=== PATIENT | female | born 1960 | race Caucasian/White ===

== ENCOUNTER 2023-06-11 16:51 | Emergency (ER) | payer BC ==
[2023-06-11] MEDS ORDERED: Sodium Chloride 0.9% 2.5 ML Syringe FLUSH PRN (17:31)
[2023-06-11] MEDS ORDERED: Sodium Chloride 0.9% 10 ML Syringe FLUSH PRN (17:31)
[2023-06-11] MEDS ORDERED: Promethazine 25 MG/ML SDV IM STA (17:32)
[2023-06-11] MEDS ORDERED: Sodium Chloride 0.9% 1,000 ML IV STA (18:40)
[2023-06-11] MEDS ORDERED: droPERidol 5 MG/2 ML SDV IVPUSH STA (18:40)
[2023-06-11 18:51] LABS: BASOPHILS PERCENT AUTO 0.4 % (0.0-1.5); HEMATOCRIT 51.1 % (36.0-46.0); HEMOGLOBIN 17.7 g/dL (12.0-16.0); LYMPHOCYTES ABSOLUTE AUTO 0.7 K/uL (0.6-2.4); LYMPHOCYTES PERCENT AUTO 6.7 % (16.0-40.0); MEAN CORPUSCULAR HEMOGLOBIN 31.1 pg (27.0-32.0); MEAN CORPUSCULAR HGB CONC 34.6 g/dL (31.0-37.0); MEAN CORPUSCULAR VOLUME 89.6 fL (80.0-98.0); MONOCYTES ABSOLUTE AUTO 0.4 K/uL (0.0-0.8); MONOCYTES PERCENT AUTO 4.4 % (0.0-15.0); NEUTROPHILS ABSOLUTE AUTO 8.7 K/uL (1.4-5.7); NEUTROPHILS PERCENT AUTO 88.5 % (48.0-80.0); NRBC ABSOLUTE 0 K/uL; PLATELET COUNT,PLT 232 K/uL (150-400)
[2023-06-11 19:20] LABS: ALBUMIN 4.6 g/dL (3.4-5.0); BILIRUBIN TOTAL 0.8 mg/dL (0.2-1.0); CALCIUM 9.7 mg/dL (8.5-10.1); CARBON DIOXIDE,CO2 28.1 mmol/L (21.0-32.0); CREATININE 0.9 mg/dL (0.6-1.0); EST CRCL DRUG DOSING (CG) 56.68 mL/min
[2023-06-11 19:22] LABS: A/G RATIO 1.1 (0.9-1.6)
[2023-06-11 21:03] LABS: APPEARANCE,URINE CLEAR; GLUCOSE,URINE NEGATIVE (NEGATIVE); KETONES,URINE 40 mg/dL (NEGATIVE); LEUKOCYTE ESTERASE,URINE NEGATIVE (NEGATIVE); NITRITE,URINE NEGATIVE (NEGATIVE); OCCULT BLOOD,URINE NEGATIVE (NEGATIVE); PROTEIN,URINE 100 mg/dL (NEGATIVE); UROBILINOGEN,URINE 0.2 EU/dL (<2.0)
[2023-06-11 21:20] LABS: BILIRUBIN,URINE SMALL (NEGATIVE); COLOR,URINE AMBER
[2023-06-11 21:21] LABS: BACTERIA,URINE FEW (NEGATIVE); EPITHELIAL CELLS,URINE OCCASIONAL (NONE-FEW); MUCUS,URINE OCCASIONAL (NONE-MOD); RBC,URINE 0-2 (0-2/HPF); WBC,URINE 0-2 (0-5/HPF)
== END 2023-06-11 23:10 | disposition home or self-care (01) ==
LOC: MW.ED 16:51
DX: R11.2 Nausea with vomiting, unspecified (principal); R16.0 Hepatomegaly, not elsewhere classified; I10 Essential (primary) hypertension; E87.6 Hypokalemia; Z88.2 Allergy status to sulfonamides; Z20.822 Contact with and (suspected) exposure to COVID-19
CPT/HCPCS: 36415; 70450; 74018; 80053; 81001; 83690; 83735; 85025; 87635; 93005; 96361; 96372; 96374; 99284; J1790; J2550; J3490; J7030; 93010; U0002